=== PATIENT | female | born 1990 | race Caucasian/White ===

== ENCOUNTER 2018-11-06 09:58 | Emergency (ER) | payer OTHER ==
--- NOTE | 2018-11-06 10:40 | EDM.PDOC ---
ED HPI GENERAL MEDICAL PROBLEM - General Chief Complaint: Lower Extremity Injury/Pain Stated Complaint: LT LEG PAIN 15 WEEKS PREG Time Seen by Provider: 11/06/18 10:23 Source of Information: Reports: Patient, RN Notes Reviewed, Significant Other ( Fiance) History Limitations: Reports: No Limitations - History of Present Illness INITIAL COMMENTS - FREE TEXT/NARRATIVE: The patient states that she has had pain in her right lower extremity for about one month, but that the pain resolved this past 11/01/2018. She states that she underwent a Doppler ultrasound of the right lower extremity about one month ago, ordered per her Assembly Person, that returned negative. The patient states that she has been going to a chiropractor twice a week for the past month, but but that the adjustments have not been helping. The patient states that she developed pain in her left upper medial thigh on 11/01/2018, just about the same time that her right lower extremity pain disappeared. She then developed a tight feeling in her left calf yesterday. The tightness is worse with ambulation or weightbearing, such that she finds it difficult to walk. She states that the symptoms that she feels in her left lower extremity are very similar to the symptoms that she previously had in her right lower extremity. The patient denies recent dyspnea, chest pain, or palpitations. No recent fever. The patient denies prior injury to either lower extremity, and denies recent long trips. No prior similar symptoms. The patient states that a relative suggested that she take magnesium, which she tried today, without relief of her symptoms. The patient states that she is currently 15 weeks 0 days gestation by dates. LMP 07/24/2018, YAMINI 04/30/2019. G2 Ab1. An obstetric ultrasound about 3 weeks ago found a SLIUP at 11 weeks 1 day. The patient states that she spoke to her Assembly Person's nurse yesterday, but that they did not think that her symptoms were related. The patient states that she has an older sister who was found to have protein C deficiency after she suffered a pulmonary embolus. Her sister is on an anticoagulant for life. The patient does not have a PCP. The patient's Assembly Person is Dr. Chari Jonas. Left Leg Pain Score (Numeric/FACES): 7 - Related Data Allergies Allergy/AdvReac Type Severity Reaction Status Date / Time No Known Allergies Allergy Verified 11/06/18 10:19 Home Meds: Home Meds Enoxaparin [Lovenox] 90 mg SQ Q12H #10 syringe 11/06/18 [Rx] Pnv No.95/Ferrous Fum/Folic AC [ Caplet] 1 tab PO DAILY 11/06/18 [ History] Past Medical History COST ESTIMATING CLERK History: Reports: Fibroids, Therapeutic : 2 Endocrine/Metabolic History: Reports: Obesity/BMI 30+ - Past Surgical History GI Surgical History: Reports: Hernia Repair/Other (as an infant) Social & Family History - Family History Family Medical History: Noncontributory Cardiac: Reports: Hypertension Respiratory: Reports: COPD, PE Musculoskeletal: Reports: Arthritis - Tobacco Use Smoking Status *Q: Former Smoker Years of Tobacco use: 11 Packs/Tins Daily: 0.2 Month/Year Tobacco Last Used: Quit August 2018 - Caffeine Use Caffeine Use: Reports: Soda - Alcohol Use Alcohol Use History: Yes Alcohol Use Frequency: Rarely - Recreational Drug Use Recreational Drug Use: No - Living Situation & Occupation Living situation: Reports: Single, with Significant Other (Fiance) Occupation: Employed (Dispatcher [employer]) Review of Systems - Review of Systems Review Of Systems: ROS reveals no pertinent complaints other than HPI. ED EXAM, GENERAL - Physical Exam Exam: See Below Exam Limited By: No Limitations General Appearance: Alert, WD/WN, No Apparent Distress Eye Exam: Bilateral Eye: EOMI, Normal Inspection Ears: Normal External Exam, Hearing Grossly Normal Nose: Normal Inspection Throat/Mouth: Normal Inspection, Normal Lips, Normal Voice, No Airway Compromise Head: Atraumatic, Normocephalic Neck: Normal Inspection, Full Range of Motion Respiratory/Chest: No Respiratory Distress, Lungs Clear, Normal Breath Sounds, No Accessory Muscle Use Cardiovascular: Normal Peripheral Pulses, Regular Rate, Rhythm, No Gallop, No JVD, No Murmur, No Rub Peripheral Pulses: 4+: Radial (L), Radial (R), Femoral (L), Femoral (R), Popliteal (L), Popliteal (R), Posterior Tibial (L), Posterior Tibial (R), Dorsalis Pedis (L), Dorsalis Pedis (R) GI/Abdominal: Normal Bowel Sounds, Soft, Non-Tender, No Organomegaly, No Distention, No Abnormal Bruit, Mass (Gravid uterus consistent with dates), Other (Obese) (Female) Exam: Deferred Rectal (Female) Exam: Deferred Back Exam: Normal Inspection, Full Range of Motion, NT Extremities: Normal Range of Motion, Normal Capillary Refill, Other (Very mild swelling to the left leg, when compared to the right. Right mid-calf circumference 34.5 cm. Left mid-calf circumference 35.5 cm. Neurovascular status of both lower extremities appears to be intact.) Neurological: Alert, Oriented, Normal Cognition, No Motor/Sensory Deficits Psychiatric: Normal Affect Skin Exam: Warm, Dry, Intact, Normal Color, No Rash Course - Vital Signs Last Recorded V/S: Last Vital Signs Temp 37.0 C 11/06/18 10:22 Pulse 104 H 11/06/18 10:22 Resp 14 11/06/18 10:22 BP 129/82 11/06/18 10:22 Pulse Ox 99 11/06/18 10:22 - Orders/Labs/Meds Labs: Laboratory Tests 11/06/18 Range/Units 11:22 PT 10.3 (9.5-12.1) SECONDS INR 0.94 APTT 29 (24-31) SECONDS Meds: Medications Discontinued Medications Generic Name Dose Route Start Last Admin Trade Name Freq PRN Reason Stop Dose Admin Enoxaparin Sodium 130 mg 11/06/18 11:34 11/06/18 12:02 Lovenox SUBCUT 11/06/18 11:35 130 mg ONETIME STA Administration - Re-Assessments/Exams Free Text/Narrative Re-Assessment/Exam: 11/06/18 10:39 The midcalf circumference on the left is 1 cm greater than the midcalf circumference on the right. The protein C deficiency in the patient's older sister is of particular concern. I believe there is a reasonable chance that the patient may have a DVT, therefore I ordered a Doppler of the patient's left lower extremity, along with coags, in the event that she requires anticoagulation. 11/06/18 11:19 Notified by the cnc technician that the patient has a DVT extending from the calf to the common femoral vein, as well as clot noted in the greater saphenous vein (a superficial vein). Formal read per the Radiologist pending. 11/06/18 11:[address] Chari Jonas at 11:32. She recommended that we start the patient on enoxaparin 1 mg/kg SQ Q12 hours, or 1.5 mg/kg SQ daily, if the patient prefers. The patient already has an appointment to see Dr. Jonas on 11/11/2018. Dr. Jonas asked that I prescribe enoxaparin of sufficient quantity to last the patient through 11/11/2018, at which time she will take over the prescriptions. She will order a hypercoagulable workup, although protein C will have to wait until the patient is no longer . Because it is midday, I have ordered enoxaparin 1.5 mg/kg SQ x 1. 11/06/18 11:55 Doppler ultrasound of the left lower extremity is read by Dr. Enriquez as: 1. Diffuse left lower extremity thrombus causing lack of flow within the left iliac vein. Doppler results discussed with the patient and her fianc. As above, because it is midday, the patient will receive enoxaparin 1.5 mg/kg today, then start on 1 mg/kg SQ Q12 hours starting tomorrow morning. Raquel MENDOZA will teach the patient and her fianc how to properly inject. I will prescribe a quantity sufficient to last the patient through 11/11/2018. The patient stated that it is very painful for her to ambulate on her left lower extremity, therefore she requested crutches. Departure - Departure Time of Disposition: 11:58 Disposition: Home, Self-Care 01 Condition: Good Clinical Impression: Deep vein thrombosis (DVT) of left lower extremity, - Discharge Information *PRESCRIPTION DRUG MONITORING PROGRAM REVIEWED*: Not Applicable *COPY OF PRESCRIPTION DRUG MONITORING REPORT IN PATIENT DERRICK: Not Applicable Prescriptions: Enoxaparin [Lovenox] 90 mg SQ Q12H #10 syringe Instructions: Deep Vein Thrombosis Referrals: Chari Jonas MD [Primary Care Provider] - Forms: ED Department Discharge Additional Instructions: You were seen in the emergency room for left upper medial thigh pain, and left calf tightness. Workup in the ER included a Doppler ultrasound of your left lower extremity, along with checking your blood coagulability. The Doppler ultrasound found extensive blood clot in your left lower extremity. You have a DVT. You have been started on the blood thinning medicine enoxaparin (Lovenox). Because it is midday, you were given a larger dose today, but starting tomorrow morning, you are to take 90 mg subcutaneously every 12 hours. A prescription for enoxaparin [facility], located in the [facility] across [address] from the hospital. Follow-up with your Assembly Person, Dr. Chari Jonas, at your previously scheduled appointment this coming 11/11/2018. If any other problems, please do not hesitate to return to the ER.
[2018-11-06] MEDS ORDERED: Enoxaparin 150 MG/1 ML Syringe SUBCUT STA (11:34)
--- NOTE | 2018-11-06 11:46 | US ---
Left lower extremity deep venous ultrasound: Duplex and color flow imaging was obtained of the left common femoral, proximal greater saphenous, superficial femoral, popliteal, posterior tibial and peroneal veins. Right common femoral vein was also evaluated. Findings: Diffuse thrombus is seen throughout the left lower extremity. Thrombus is also seen within the greater saphenous vein. No flow is seen within the left iliac vein. Right common femoral vein is patent. Impression: 1. Diffuse left lower extremity thrombus causing lack of flow within the left iliac vein. Diagnostic code #5
== END 2018-11-06 12:30 | disposition home or self-care (01) ==
LOC: JD.ED 09:58
DX: O22.32 Deep phlebothrombosis in pregnancy, second trimester (principal); Z3A.15 15 weeks gestation of pregnancy; Z79.899 Other long term (current) drug therapy; Z87.891 Personal history of nicotine dependence
CPT/HCPCS: 36415; 85610; 85730; 93971; 96372; 99284; J1650